=== PATIENT | female | born 1970 | race Caucasian/White ===

== ENCOUNTER 2020-06-14 10:00 | Emergency (ER) | payer SELFPAY ==
[2020-06-14] MEDS ORDERED: KETOROLAC TROMETHAMINE INJ 30 MG/ML VIAL IV ONE (10:14)
[2020-06-14] MEDS ORDERED: PROMETHAZINE HCL INJ 25 MG in SODIUM CHLORIDE 0.9% 50ML 50 ML IVPB ONE (10:14)
[2020-06-14] MEDS ORDERED: SODIUM CHLORIDE 0.9% 1000ML 1,000 ML IVS ONE (11:31)
[2020-06-14] MEDS ORDERED: ALUM & MAG HYDROX-SIMETHICONE 30 ML, LIDOCAINE VISCOUS 2% 15 ML PO ONE ×2 (12:13)
--- NOTE | 2020-06-14 12:20 | CT ---
EXAM DESCRIPTION: Abdomen/Pelvis w/Contrast CLINICAL HISTORY: 50 years Female, epigastric to llq pain 4 days TECHNIQUE: This exam was performed according to our departmental dose-optimization program, which includes automated exposure control, adjustment of the mA and/or kV according to patient size and/or use of iterative reconstruction technique. COMPARISON: None at time of initial interpretation. FINDINGS: Bibasilar volume loss. No focal consolidation or suspicious pulmonary nodule. The liver is unremarkable. No suspicious hepatic lesion. No biliary dilatation. Cholecystectomy. The portal vein is patent. Indeterminate left adrenal nodule measuring 2.2 cm. The spleen, pancreas and right adrenal gland are unremarkable. Symmetric renal parenchymal enhancement. No hydronephrosis. No urolithiasis. Bladder the uterus is anteverted. No suspicious adnexal lesion. The bladder is decompressed. No evidence of bowel obstruction or focal inflammatory change. No findings to suggest appendicitis. No adenopathy. No focal fluid collection. No free air. Normal caliber abdominal aorta. Minimal atherosclerotic plaque. No acute or suspicious osseous abnormality. Scattered degenerative changes present. IMPRESSION: 1. No evidence of acute process in the abdomen or pelvis. 2. Indeterminate left adrenal nodule measuring 2.2 cm. Recommend follow-up CT adrenal adenoma protocol. Electronically signed by: Nhan Hernandez MD 06/14/2020 12:19 PM [employer]
[2020-06-14] MEDS ORDERED: AZITHROMYCIN 250 MG TAB PO ONE (12:25)
[2020-06-14] MEDS ORDERED: DICYCLOMINE HCL 20 MG TAB PO ONE (12:25)
[2020-06-14] MEDS ORDERED: ONDANSETRON ODT 8 MG TAB SL ONE (12:25)
--- NOTE | 2020-06-14 12:33 | ED.PDOC ---
History of Present Illness - General Chief Complaint: Abdominal Pain Stated Complaint: left sided abdominal pain Time Seen by Provider: 06/14/20 10:04 Source: patient Exam Limitations: no limitations - History of Present Illness Initial Comments: The patient is a 50-year-old female presented emergency room secondary to 4 to 5 days of abdominal cramping. No real diarrhea. Mild nausea. No fever. No real point abdominal pain. She reports most the discomfort is in the central abdomen left lower quadrant. No urinary symptoms. No new vaginal discharge. No fevers. No sore throat or runny nose. No syncope or near syncope. Timing/Duration: other - 5 days Severity: moderate Improving Factors: nothing Worsening Factors: eating Associated Symptoms: loss of appetite, malaise, nausea/vomiting Allergies/Adverse Reactions: Allergies NO KNOWN ALLERGY Allergy (Verified 06/14/20 10:12) Home Medications: Ambulatory Orders NK 06/14/20 Review of Systems - Review of Systems Constitutional: States: malaise EENTM: States: no symptoms reported Respiratory: States: no symptoms reported Cardiology: States: no symptoms reported Gastrointestinal/Abdominal: States: abdominal pain, nausea Genitourinary: States: no symptoms reported Musculoskeletal: States: no symptoms reported Skin: States: no symptoms reported Neurological: States: no symptoms reported Endocrine: States: no symptoms reported All other Systems: No Change from Baseline Past Medical History (General) - Patient Medical History Hx Dementia: No Hx Asthma: No Hx Congestive Heart Failure: No Hx Hypertension: No Hx Renal Disease: No Surgical History: appendectomy, cholecystectomy Family Medical History - Family History Mother Family History: No Known Physical Exam - Physical Exam General Appearance: Alert, Comfortable, No apparent distress Eye Exam: bilateral normal Ears, Nose, Throat: hearing grossly normal, normal pharynx Neck: full range of motion, supple Respiratory: lungs clear, normal breath sounds, no respiratory distress, no accessory muscle use Cardiovascular/Chest: normal peripheral pulses, regular rate, rhythm, no edema Peripheral Pulses: radial,right: 2+, radial,left: 2+, dorsalis pedis,right: 2+, dorsalis pedis,left: 2+ Gastrointestinal/Abdominal: soft, other - The discomfort in palpation of the central abdominal to epigastric area as well as the left lower quadrant area. No definite rebound or peritoneal signs at this point just discomfort. No palpable mass. 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 She most likely has a gastroenteritis, whether this is viral or bacterial in the setting at this point. The patient will be placed on azithromycin for the next 5 days in case this is bacterial. She will additionally be written for Zofran, dicyclomine and tramadol for as needed use. Additionally she should black pickler [id number] Pepcid and take it twice a day for the next month and black pickler some liquid Maalox to use on an as-needed basis. She should maintain a bland diet and keep her self well-hydrated. Additionally starting a probiotic in the next few days, of her choice would be recommended. ER warnings are given. I would like her to follow back up with her primary care doctor within the coming week for a repeat evaluation. She does have a small adrenal nodule that will require outpatient follow-up imaging. No evidence of sepsis or operative abdomen is seen at this time. mary hawkins [phone] 06/14/20 12:37 Delay in patient disposition due to technological difficulties. - Results/Orders Results/Orders: CT scan of abdomen pelvis with contrast shows no obvious acute abnormality. She does have a 2.2 cm left adrenal nodule that will need outpatient follow-up. Laboratory Tests 06/14/20 06/14/20 06/14/20 10:15 10:21 10:21 WBC 10.6 RBC 4.84 Hgb 15.2 Hct 43.3 MCV 89.4 MCH 31.5 H MCHC 35.2 RDW 14.2 Plt Count 344 MPV 7.3 L Absolute Neuts (auto) 7.00 H Absolute Lymphs (auto) 2.40 Absolute Monos (auto) 0.90 H Absolute Eos (auto) 0.30 Absolute Basos (auto) 0.10 Neutrophils % 65.7 Lymphocytes % 22.1 Monocytes % 8.1 Eosinophils % 2.8 Basophils % 1.3 Sodium 138 Potassium 4.3 Chloride 106 Carbon Dioxide 23 Anion Gap 13.3 BUN 11 Creatinine 0.55 L BUN/Creatinine Ratio 20.0 Random Glucose 90 Serum Osmolality 274.6 L Lactic Acid Calcium 8.8 Magnesium Total Bilirubin 0.4 AST 20 ALT 16 Alkaline Phosphatase 77 Creatine Kinase 54 CK-MB (CK-2) 1.6 CK-MB (CK-2) % Not Reportable Troponin I 0.03 Serum Total Protein 7.4 Albumin 4.2 Globulin 3.2 Albumin/Globulin Ratio 1.3 Amylase 32 Lipase TSH Serum HCG, Qual Urine Color Yellow Urine Appearance Clear Urine pH 6.0 Ur Specific [place] 1.010 Urine Protein Negative Urine Glucose (UA) Negative Urine Ketones Negative Urine Blood Small H Urine Nitrite Negative Urine Bilirubin Negative Urine Urobilinogen 0.2 Ur Leukocyte Esterase Negative Urine RBC 0 Urine WBC 0 Ur Epithelial Cells 0 Urine Bacteria 0 06/14/20 06/14/20 06/14/20 10:21 10:21 10:21 WBC RBC Hgb Hct MCV MCH MCHC RDW Plt Count MPV Absolute Neuts (auto) Absolute Lymphs (auto) Absolute Monos (auto) Absolute Eos (auto) Absolute Basos (auto) Neutrophils % Lymphocytes % Monocytes % Eosinophils % Basophils % Sodium Potassium Chloride Carbon Dioxide Anion Gap BUN Creatinine BUN/Creatinine Ratio Random Glucose Serum Osmolality Lactic Acid 0.7 Calcium Magnesium 2.0 Total Bilirubin AST ALT Alkaline Phosphatase Creatine Kinase CK-MB (CK-2) CK-MB (CK-2) % Troponin I Serum Total Protein Albumin Globulin Albumin/Globulin Ratio Amylase Lipase 27 TSH 1.22 Serum HCG, Qual Negative Urine Color Urine Appearance Urine pH Ur Specific [place] Urine Protein Urine Glucose (UA) Urine Ketones Urine Blood Urine Nitrite Urine Bilirubin Urine Urobilinogen Ur Leukocyte Esterase Urine RBC Urine WBC Ur Epithelial Cells Urine Bacteria Departure - Departure Clinical Impression: Gastroenteritis Disposition: Discharge to Home or Self Care Condition: Fair Departure Forms: ED Discharge - Pt. Copy, Patient Portal Self Enrollment Instructions: DI for Abdominal Pain-Adult, Viral Gastroenteritis, Adult (DC) Diet: bland diet Activity: increase activity as tolerated Home Medications: Ambulatory Orders NK 12/02/20 Additional Instructions: The patient is a 50-year-old female presenting with about 5 days of abdominal cramping. She most likely has a gastroenteritis, whether this is viral or bacterial in the setting at this point. The patient will be placed on azithromycin for the next 5 days in case this is bacterial. She will additionally be written for Zofran, dicyclomine and tramadol for as needed use. Additionally she should black pickler [id number] Pepcid and take it twice a day for the next month and black pickler some liquid Maalox to use on an as-needed basis. She should maintain a bland diet and keep her self well-hydrated. Additionally starting a probiotic in the next few days, of her choice would be recommended. ER warnings are given. I would like her to follow back up with her primary care doctor within the coming week for a repeat evaluation. She does have a small adrenal nodule that will require outpatient follow-up imaging. No evidence of sepsis or operative abdomen is seen at this time.
[2020-06-14 13:02] VITALS: BP 140/75; TEMP 97.9; O2SAT 98
== END 2020-06-14 12:50 | disposition home or self-care (01) ==
LOC: ER 10:00
DX: K52.9 Noninfective gastroenteritis and colitis, unspecified (principal); Z90.49 Acquired absence of other specified parts of digestive tract
CPT/HCPCS: 36415; 74177; 80053; 81001; 82150; 82550; 82553; 83605; 83690; 83735; 84443; 84484; 84703; 85025; 87040; A4216; J1885; J2550; J7030; Q0144